=== PATIENT | male | born 1970 | race Caucasian/White ===

== ENCOUNTER 2017-05-25 13:56 | Emergency (ER) | payer MEDICARE ==
[2017-05-25 16:54] LABS: BASOPHILS 0.5 % (0-2); HEMATOCRIT 39.1 % (42.0-54.0); HEMOGLOBIN 12.5 g/dL (13.5-17.5); IMMATURE GRANULOCYTES 0.1 % (0-5); LYMPHOCYTES 18.1 % (15-50); MCH 28.2 pg (26.0-34.0); MCV 88.1 fL (80.0-100.0); MONOCYTES 5.2 % (2-11); NEUTROPHILS 71.1 % (40-80); PLATELET COUNT 270 10x3/uL (130-400); RBC 4.44 10x6/uL (4.20-6.10); RDW 15.7 % (11.5-14.5); WBC 8.1 10x3/uL (4.8-10.8)
[2017-05-25 17:07] LABS: ALBUMIN 3.9 g/dL (3.4-5.0); ALKALINE PHOSPHATASE 60 U/L (46-116); ALT (SGPT) 15 U/L (10-68); CALC OSMOLALITY 300 mosm/kg (275-300); CALCIUM 8.3 mg/dL (8.5-10.1); CARBON DIOXIDE 24.5 mmol/L (21.0-32.0); CHLORIDE - SERUM 103 mmol/L (98-107); GLUCOSE 128 mg/dL (74-106); POTASSIUM - SERUM 5.9 mmol/L (3.5-5.1); PROTEIN - SERUM 7.6 g/dL (6.4-8.2); SODIUM 139 mmol/L (136-145); UREA NITROGEN 70 mg/dL (7-18); eGFR NON AFRICAN AMERICAN 5 mL/min (90-120)
[2017-05-25 17:10] LABS: CREATINE KINASE 131 UL (21-232); TROPONIN-I < 0.017 ng/mL (0.000-0.060)
[2017-05-29] MEDS ORDERED: LISINOPRIL5 MG PO (20:27)
[2017-05-29] MEDS ORDERED: LIPITOR20 MG PO (20:27)
[2017-05-29] MEDS ORDERED: BAYER CHEWABLE81 MG PO (20:28)
== END 2017-05-25 21:29 | disposition home or self-care (01) ==
LOC: D.ER 13:56 → D.SDCHOLD 19:15 → D.ER 21:29 → D.SDCHOLD 21:29
PROVIDERS: Family Medicine
DX: I12.9 Hypertensive chronic kidney disease with stage 1 through stage 4 chronic kidney disease, or unspecified chronic kidney disease (principal); N18.9 Chronic kidney disease, unspecified; E87.5 Hyperkalemia; Z99.2 Dependence on renal dialysis; I49.3 Ventricular premature depolarization

== ENCOUNTER 2017-07-21 07:09 | Day surgery (SDC) | payer MEDICARE ==
[~2017-07-21] VITALS: Ht 185.4 cm; Wt 95.3 kg
--- NOTE | ~2017-07-21 | OP ---
PATIENT NAME: WALKER ENRIQUEZ MEDICAL RECORD: [id number] :74 LOCATION:[facility] ADMISSION DATE: SURGEON: CORA BUENROSTRO MD DATE OF OPERATION: 07/21/2017 REFERRED BY: Heidi De León MD PREOPERATIVE DIAGNOSES: End-stage renal disease and dependence on hemodialysis. OPERATION PERFORMED: Creation of a left upper extremity brachiobasilic Wilson type AV fistula as a first of 2 planned operations in construction of a brachial artery to translocated basilic vein AV fistula. SURGEON: Cora Buenrostro MD ANESTHESIA: General and regional block per CORPORATE HUMAN RESOURCES MANAGER. PREOPERATIVE NOTE: Mr. Grace is a 46-year-old white male patient who has had a prior failed fistula attempt on the left arm. He is presently on dialysis with a catheter and needs long-term access. He is brought to the OR at this time to create a fistula or if necessary implant a graft in the left arm. The patient does have a history of IV drug use. DESCRIPTION OF PROCEDURE: Under anesthesia in supine position, the patient was prepped and draped in sterile manner. I used a Michelle drain as a topical venous tourniquet and applied nitroglycerin paste to the arm and forearm. He was examined with Duplex ultrasound and color flow technique and found to have a large and very suitable basilic vein in the left arm for creation of a brachial artery to basilic fistula. The basilic vein in the forearm was also quite large and still could possibly even in the future provide for forearm access, although I think the upper arm brachiobasilic will be a much better bet for this gentleman. I made an incision on the medial aspect of the arm right over the basilic vein and exposed it and dissected it distalward as far as the antecubital space. Multiple tributaries were ligated and clipped and the vein was treated with topical papaverine. The brachial artery was exposed, point which was very close proximity to the vein. The artery was controlled and encircled with doubly looped Silastic tapes, which were used to occlude the vessel. The vessel was opened and flushed proximally and distally with heparinized saline and generally prepared for anastomosis. The basilic vein distally was ligated and then transected and bevelled. It was flushed with heparinized saline and then anastomosed end of vein to side of artery with running 6-0 Prolene. When completed and the occluding loops were released, excellent flow developed immediately in the fistula. There was preservation of a high resistance type pulsatile flow in the distal brachial artery and did have normal high resistance type pulsatile flow in the radial artery at the wrist. Hemostasis was adequate. The wound was irrigated with Ancef/gentamicin solution and closed without the use of a drain using interrupted inverted 3-0 Vicryl and then running intracuticular 4-0 Monocryl and Dermabond glue. The incisions were dressed with Maxorb Ag, Tegaderm and Cavilon skin prep and the patient was awakened from his anesthetic and taken to the recovery room in stable condition. Blood loss was trivial and unreplaced. All sponges, instruments and needles were accounted for. No drain was used and no surgical specimen was submitted for histopathology. PLAN: I will give the patient a prescription for Fisher 5/325, #15, he can take OPERATIVE REPORT [id number] WALKER ENRIQUEZ 1 or 2 p.o. q.4 hours p.r.n. pain. He is to see me in my office next week and we will plan after that for a day to return him to the operating room for the next stage, which will be translocation. TRANSINT:[id number] Voice Confirmation ID: [id number] DOCUMENT ID: [id number] CORA BUENROSTRO MD at 2011 CC: HEIDI DE LEÓN MD [id number] DICTATION DATE: 07/21/17 1601 ADMINISTRATIVE NURSING SUPERVISOR: 07/21/17 1628 [facility] 07/21/17 [place] [address] [place] [id number]
[~2017-07-21 07:09] MED LIST: BAYER CHEWABLE81 MG PO; LIPITOR20 MG PO; PRINIVIL20 MG PO
[2017-07-21 07:55] LABS: BASOPHILS 0.5 % (0-2); EOSINOPHILS 5.6 % (0-7); HEMATOCRIT 39.8 % (42.0-54.0); HEMOGLOBIN 13.6 g/dL (13.5-17.5); IMMATURE GRANULOCYTES 0.1 % (0-5); LYMPHOCYTES 19.7 % (15-50); MCH 28.9 pg (26.0-34.0); MCHC 34.2 g/dL (31.0-37.0); MCV 84.5 fL (80.0-100.0); MEAN PLATELET VOLUME 10.2 fL (7.4-10.4); MONOCYTES 7.5 % (2-11); NEUTROPHILS 66.6 % (40-80); PLATELET COUNT 208 10x3/uL (130-400); RBC 4.71 10x6/uL (4.20-6.10); WBC 8.8 10x3/uL (4.8-10.8)
[2017-07-21 08:24] LABS: INR 0.99 (0.85-1.17); PROTIME 12.7 SECONDS (11.6-15.0)
[2017-07-21 08:29] LABS: ANION GAP 16.4 mmol/L (8-16); CALCIUM 7.8 mg/dL (8.5-10.1); CARBON DIOXIDE 27.2 mmol/L (21.0-32.0); CREATININE - SERUM 8.6 mg/dL (0.6-1.3); POTASSIUM - SERUM 4.6 mmol/L (3.5-5.1)
[2017-07-21] MEDS ORDERED: FUROSEMIDE20 MG PO (08:42)
[2017-07-21] MEDS ORDERED: PEPCID20 MG PO (08:42)
[2017-07-21] MEDS ORDERED: RENVELA800 MG PO (08:43)
[2017-07-21 09:12] VITALS: Ht 185.4 cm; Wt 95.3 kg
[2017-07-21] MEDS ORDERED: HYDROCODON-ACE1 EAC7 PO (16:30)
== END 2017-07-21 17:25 | disposition home or self-care (01) ==
LOC: D.OPS 07:09
PROVIDERS: Surgery
DX: E11.22 Type 2 diabetes mellitus with diabetic chronic kidney disease (principal); I12.0 Hypertensive chronic kidney disease with stage 5 chronic kidney disease or end stage renal disease; N18.6 End stage renal disease; Z99.2 Dependence on renal dialysis; F17.200 Nicotine dependence, unspecified, uncomplicated; I25.10 Atherosclerotic heart disease of native coronary artery without angina pectoris; K21.9 Gastro-esophageal reflux disease without esophagitis; B19.20 Unspecified viral hepatitis C without hepatic coma; Z01.812 Encounter for preprocedural laboratory examination

== ENCOUNTER 2017-08-25 06:47 | Day surgery (SDC) | payer MEDICARE ==
[~2017-08-25] VITALS: Ht 185.4 cm; Wt 93.9 kg
--- NOTE | ~2017-08-25 | OP ---
PATIENT NAME: WALKER MAKI MEDICAL RECORD: [id number] :74 LOCATION:[facility] ADMISSION DATE: SURGEON: CORA BUENROSTRO MD DATE OF OPERATION: 08/25/2017 REFERRING PHYSICIAN: Heidi De León MD PREOPERATIVE DIAGNOSIS: End-stage renal disease. POSTOPERATIVE DIAGNOSIS: End-stage renal disease. OPERATION PERFORMED: Planned second stage creation of left brachial to translocated basilic vein arteriovenous fistula. SURGEON: Cora Buenrostro MD ANESTHESIA: Regional nerve block plus general with LMA per THORACIC MEDICINE SPECIALIST. PREOPERATIVE NOTE: Mr. Maki is a 46-year-old white male patient, on chronic hemodialysis with a right internal jugular tunneled dialysis catheter. He needs long-term access. He had surgery about 2-3 weeks ago when I created a Wilson type AV fistula between the brachial artery and basilic vein in the left arm. He is returned to the operating room as we had planned and discussed at length preoperatively to now convert him to a brachial artery to translocated basilic vein AV fistula. DESCRIPTION OF PROCEDURE: Under anesthesia including nerve block, the patient was placed in supine position and the left arm and shoulder and axilla were all prepped and draped in sterile manner. I used ultrasound to examine the basilic vein at the anastomosis and above it to the axilla. It is dilated very nicely, it is greater than a centimeter in diameter all the way, beginning to show some wall thickening and in short, I believe will make an excellent fistula. I made an incision on the medial aspect of the arm directly over the vein and extended it from axilla to antecubital space, reopening the old incision. I completely mobilized the basilic vein and divided tributaries between Vicryl ligatures and Hemoclips. I then created a tunnel with a combination Impra and Luciana tunneling system. I clamped the vein just proximal to the arterial anastomosis and at that point, I transected and beveled it and flushed both sides with heparinized saline. I used an atraumatic bulldog vascular clamp in the axilla on the basilic vein. I marked a line on the anterior aspect of the vein with surgical marker and used this to orient the vein and prevent twisting. The vein was pulled through the subcutaneous tunnel where it was then properly oriented and anastomosed end-to-end to the stump of the vein remaining on the arterial anastomosis. This end-to-end anastomosis was done with two 7-0 Prolenes. When completed, the anastomosis proved to be hemostatic and was not narrowed by pursestring. Excellent flow developed immediately within the fistula and good Doppler signals were detected with the handheld device. The patient was given 20 mcg of DDAVP at the conclusion of the operation to help achieve overall wound hemostasis. The wound was irrigated with Ancef and gentamicin solution. It was then closed with interrupted inverted 3-0 Vicryl. No drain was used. The skin was closed with running intracuticular 4-0 Monocryl. Dermabond glue was used to seal the ends of the skin incision and the wound was dressed with Maxorb Ag, Tegaderm and Cavilon skin prep. He was then awakened and in stable condition taken to the recovery room. Blood loss during OPERATIVE REPORT [id number] WALKER MAKI the operation was about 50 cc, none was replaced. All sponges, instruments and needles were accounted for. I submitted no surgical specimens for histopathology. PLAN: The patient needs to stay in overnight observation since he does not have transportation. He has to be able to drive himself home tomorrow. He may need to have dialysis here in [place] before he does that, however. We will ask home health to see him and do wound dressing changes on nondialysis days. The wounds needs to be washed with some Hibiclens and dressed with dry sterile gauze. We will make an appointment for him to come back to see me in my office here in [place] in about 2 weeks. TRANSINT:[id number] Voice Confirmation ID: [id number] DOCUMENT ID: [id number] CORA BUENROSTRO MD at 1241 CC: HEIDI DE LEÓN MD [id number] DICTATION DATE: 08/25/17 1437 SCRIBING MACHINE OPERATOR: 08/25/[address] [facility] 08/26/17 [facility] [address] [place] [id number]
[~2017-08-25 06:47] MED LIST changes: +FUROSEMIDE20 MG PO; +HYDROCODON-ACE1 EAC7 PO; +PEPCID20 MG PO; +RENVELA800 MG PO
[2017-08-25 07:58] LABS: BASOPHILS 0.3 % (0-2); EOSINOPHILS 5.7 % (0-7); HEMATOCRIT 26.8 % (42.0-54.0); HEMOGLOBIN 8.7 g/dL (13.5-17.5); LYMPHOCYTES 13.4 % (15-50); MCH 29.3 pg (26.0-34.0); MCHC 32.5 g/dL (31.0-37.0); MCV 90.2 fL (80.0-100.0); MONOCYTES 7.1 % (2-11); NEUTROPHILS 73.5 % (40-80); PLATELET COUNT 216 10x3/uL (130-400); RBC 2.97 10x6/uL (4.20-6.10); RDW 16.3 % (11.5-14.5); WBC 6.5 10x3/uL (4.8-10.8)
[2017-08-25 08:07] LABS: ANION GAP 12.5 mmol/L (8-16); CALCIUM 7.8 mg/dL (8.5-10.1); CREATININE - SERUM 7.8 mg/dL (0.6-1.3); POTASSIUM - SERUM 4.5 mmol/L (3.5-5.1)
[2017-08-25 08:16] LABS: INR 1.1 (0.85-1.17); PROTIME 13.8 SECONDS (11.6-15.0)
[2017-08-25 08:42] VITALS: BMI 27.5
[2017-08-25 21:27] VITALS: BP 121/73
[2017-08-25 22:54] VITALS: Ht 185.4 cm; Wt 93.9 kg
[2017-08-26 01:02] VITALS: BP 120/66
[2017-08-26 05:37] VITALS: BP 129/78
== END 2017-08-26 08:30 | disposition left against medical advice (07) ==
LOC: D.OPS 06:47 → D.M2 19:29 → D.OPS 08-26 08:30
PROVIDERS: Internal Medicine Nephrology
DX: I12.0 Hypertensive chronic kidney disease with stage 5 chronic kidney disease or end stage renal disease (principal); N18.6 End stage renal disease; Z99.2 Dependence on renal dialysis; F17.200 Nicotine dependence, unspecified, uncomplicated; B19.20 Unspecified viral hepatitis C without hepatic coma; I25.10 Atherosclerotic heart disease of native coronary artery without angina pectoris; Z01.812 Encounter for preprocedural laboratory examination

== ENCOUNTER 2019-01-13 05:11 | Inpatient (IN) | payer MEDICARE ==
[~2019-01-13] VITALS: Ht 185.4 cm; Wt 81.6 kg
[2019-01-13] MEDS ORDERED: ENTRESTO 24 MG1 EACH PO (05:15)
--- NOTE | 2019-01-13 05:58 | NUR ---
DR MONTENEGRO NOTIFIED AND REVIEWED PT'S BEHAVIOR AND ASSESSMENT RESULTS PT IS A LOW RISK PER DR MONTENEGRO. DR MONTENEGRO STATED TO GIVE RESOURCES TO PT AT TIME OF DISCHARGE. NO FURTHER ORDERS AT THIS TIME. RESOURCES REVIEWED WITH PT AND HE VERBALIZED UNDERSTANDING.
[2019-01-13 06:03] LABS: BASOPHILS 0.4 % (0-2); EOSINOPHILS 7.9 % (0-7); HEMATOCRIT 34.7 % (42.0-54.0); HEMOGLOBIN 11.7 g/dL (13.5-17.5); IMMATURE GRANULOCYTES 0.1 % (0-5); LYMPHOCYTES 14.2 % (15-50); MCH 30.5 pg (26.0-34.0); MCHC 33.7 g/dL (31.0-37.0); MCV 90.4 fL (80.0-100.0); MEAN PLATELET VOLUME 11.2 fL (7.4-10.4); MONOCYTES 8.2 % (2-11); NEUTROPHILS 69.2 % (40-80); PLATELET COUNT 189 10x3/uL (130-400); RBC 3.84 10x6/uL (4.20-6.10); RDW 14.7 % (11.5-14.5); WBC 6.7 10x3/uL (4.8-10.8)
--- NOTE | 2019-01-13 07:08 | NUR ---
BEDSIDE REPORT GIVEN TO GALDINO GARCIA.
--- NOTE | 2019-01-13 07:08 | NUR ---
REPORT RECIEVED FROM OFF GOING NURSE, GALDINO PICKENS. PT OBSERVED LYING IN BED, ALERT AND ORIENTED. RESPIRATIONS EVEN AND UNLABORED. NO SIGNS OF DISTRESS. CALL LIGHT IN REACH. PT AWARE HE IS BEING ADMITTED TO [facility]. DR. JONES AT THE BEDSIDE TO SEE PT AT THIS TIME.
[2019-01-13 07:14] LABS: ALBUMIN 3.2 g/dL (3.4-5.0); BILIRUBIN - TOTAL 0.92 mg/dL (0.2-1.3); CALCIUM 8.1 mg/dL (8.5-10.1); CARBON DIOXIDE 20.4 mmol/L (21.0-32.0); CREATININE - SERUM 12.4 mg/dL (0.6-1.3); PROTEIN - SERUM 6.8 g/dL (6.4-8.2)
[2019-01-13 07:16] LABS: POTASSIUM - SERUM 6.4 mmol/L (3.5-5.1)
--- NOTE | 2019-01-13 07:20 | NUR ---
DR SCHROEDER PAGED AT 0719 TO REPORT CRITICAL POTASSIUM.
[2019-01-13 07:47] LABS: APTT 30.6 SECONDS (22.8-39.4); INR 1.22 (0.85-1.17); PROTIME 14.9 SECONDS (11.6-15.0)
[2019-01-13 08:00] VITALS: BP 129/78
[2019-01-13 08:22] LABS: CREATINE KINASE 384 UL (21-232); MAGNESIUM - SERUM 2.6 mg/dL (1.8-2.4); TROPONIN-I 0.045 ng/mL (0.000-0.060)
[2019-01-13 08:25] LABS: PHOSPHOROUS 11.5 mg/dL (2.5-4.9)
[2019-01-13 08:26] LABS: CKMB 7.5 U/L (0.0-3.6)
--- NOTE | 2019-01-13 08:26 | NUR ---
NOTIFIED BY LAB OF CRITICAL PHOSPHORUS OF 11.5. ADMITTING PHYSICIAN NOTIFIED.
[2019-01-13 09:00] VITALS: BP 131/83
--- NOTE | 2019-01-13 09:17 | NUR ---
ORDERED PO RENAGEL AND PO EMTRESTO NOT GIVEN D/T INSRTUCTIONS REGARDING ADMINISTERED MEDICATION KAYEXELATE. INSTRUCTIONS STATE THAT PO MEDS MUST NOT BE GIVEN WITHIN 3 HOURS OF PO KAYEXELATE.
--- NOTE | 2019-01-13 09:35 | NUR ---
PT REMAINS ALERT AND ORIENTED WHEN AWAKE, DENIES ANY NEEDS. PT AWARE HE IS BEING ADMITTED AND HAVING DIALYSIS TODAY. AWAITING BED ASSIGNMENT. CALL LIGHT IN REACH, WILL CONTINUE TO MONITOR.
--- NOTE | 2019-01-13 11:06 | NUR ---
PT LEFT THE ED AT 1036. TRANSPORTED TO INPATIENT DIALYSIS VIA STRETCHER BY THIS NURSE. NO SIGNS OF DISTRESS. NOTED WHEN LEAVING.
--- NOTE | 2019-01-13 14:58 | NUR ---
PT BACK TO THE ED AT THIS TIME, RETURNED FROM DIALYSIS UNIT. NO SIGNS OF DISTRESS. PT ALERT AND ORIENTED, RESPIRATIONS EVEN AND UNLABORED. PT STATES HE "FEELS MUCH BETTER" FOLLOWING DIALYSIS. PT STATES HE NO LONGER FEELS SOB.
--- NOTE | 2019-01-13 14:59 | NUR ---
ROOM 2130 ASSIGNED TO PT AT 1324, MARKED DIRTY. AT 1415 THIS NURSE CALLED AND SPOKE WITH FAMILY PRACTICE PHYSICIAN ASSISTANT WHO STATES ROOM 2130 NOT READY AT THIS TIME. THIS NURSE REQUESTED THAT ED BE NOTIFIED WHEN ASSIGNED ROOM IS CLEAN AND READY FOR PT.
--- NOTE | 2019-01-13 15:49 | NUR ---
JOSE RN REPORTS INTERVENTIONAL RADIOLOGY STAFF QUESTIONING ORDER FOR PARACENTESIS. THIS RN CONTACTS DR. SMITH FOR CLARIFICATION OF ORDER. DR. SMITH ORDERS AN ULTRASOUND OF ABDOMEN TODAY ET OKAY TO DO PARACENTESIS TOMORROW. IR STAFF NOTIFIED AND ACCURATE UNDERSTANDING EXPRESSED.
--- NOTE | 2019-01-13 16:15 | NUR ---
NOTIFIED THAT PT'S ASSIGNED ROOM READY AT 1600.
--- NOTE | 2019-01-13 16:18 | NUR ---
CM delivered the IMM to patient, signed per patient @4285. Name: Sanjay Maki. renetta James RN
--- NOTE | 2019-01-13 16:29 | NUR ---
PER ER NURSES, PT HAS BEEN EATING WHILE IN ER / PT NOW ADMITTED TO FLOOR IN 2129 / U/S WILL BE DONE IN AM / NURSING STAFF ADVISED TO HOLD NPO AFTERF MIDNIGHT / RENEE WAS STAFF. GC, RDMS 7003
--- NOTE | 2019-01-13 17:23 | NUR ---
RECEIVED PT FROM ER. PT IS AAO AND UP AD AWILDA. RR EVEN AND UNLABORED ON RA. NO S/S OF DISTRESS NOTED. PT IS AAO AND UP AD AWILDA. R.HAND PIV IS SALINE LOCKED. PT DENIES ANY NEEDS AT THIS TIME. WILL CTM.
[2019-01-13 17:27] VITALS: BMI 23.8
--- NOTE | 2019-01-13 17:35 | NUR ---
ASSESSMENT COMPLETE PT AAOX4 RESP UNLABORED DENIES ANY NEEDS OR PAIN AT THIS TIME SALINE LOCK INTACT TO RT HAND SITE FREE OF REDNESS OR EDEMA
--- NOTE | 2019-01-13 19:30 | NUR ---
REPORT RECEIVED, WILL CONTINUE POC. PATIENT IS A/OX4, UP AD AWILDA. PATIENT IS RESTING ON RT SIDE WITH EYES CLOSED. NO S/S OF DISTRESS NOTED, RR EVEN AND UNLABORED ON ROOM AIR. IV TO RT HAND SL, PATENT, DRSG C/D/I. CL IN REACH, BED LOCKED AND LOWERED. WILL CTM.
[2019-01-13 20:00] VITALS: BP 138/82
[2019-01-14] VITALS: BP 126/67; BP 138/82
[2019-01-14 04:00] VITALS: BP 111/73
--- NOTE | 2019-01-14 06:49 | NUR ---
I have reviewed this patient and I concur with the Shift Assessment completed by the Licensed Practical Nurse today this shift.
--- NOTE | 2019-01-14 07:15 | NUR ---
REPORT RECEIVED. WILL CONTINUE WITH POC. PT CURRENTLY LYING ON LEFT SIDE RESTING. CALL LIGHT W/I REACH. RR EVEN AND UNLABORED ON RA. R.HAND PIV IS SALINE LOCKED. PT IS NPO FOR ULTRASOUND. PT DENIES ANY NEEDS AT THIS TIME. WILL CTM.
[2019-01-14 08:03] VITALS: BP 141/87
[2019-01-14 10:26] LABS: BASOPHILS 0.6 % (0-2); EOSINOPHILS 7.6 % (0-7); HEMATOCRIT 34.7 % (42.0-54.0); HEMOGLOBIN 11.3 g/dL (13.5-17.5); IMMATURE GRANULOCYTES 0.2 % (0-5); LYMPHOCYTES 17.5 % (15-50); MCH 30.1 pg (26.0-34.0); MCHC 32.6 g/dL (31.0-37.0); MCV 92.3 fL (80.0-100.0); MEAN PLATELET VOLUME 10.4 fL (7.4-10.4); MONOCYTES 7.6 % (2-11); NEUTROPHILS 66.5 % (40-80); PLATELET COUNT 181 10x3/uL (130-400); RBC 3.76 10x6/uL (4.20-6.10); RDW 14.4 % (11.5-14.5); WBC 5.3 10x3/uL (4.8-10.8)
[2019-01-14 10:33] LABS: ANION GAP 17.8 mmol/L (8-16); CALCIUM 8.4 mg/dL (8.5-10.1); CARBON DIOXIDE 24.5 mmol/L (21.0-32.0); CREATININE - SERUM 10.7 mg/dL (0.6-1.3)
[2019-01-14 10:34] LABS: POTASSIUM - SERUM 5.3 mmol/L (3.5-5.1)
[2019-01-14 11:55] VITALS: BP 133/89
[2019-01-14 13:40] VITALS: Ht 185.4 cm; Wt 81.6 kg
--- NOTE | 2019-01-14 14:35 | MORECARE ---
CASE MANAGEMENT DISCHARGE SUMMARY PATIENT: SANJAY MAKI UNIT: [id number] ADM DATE: 01/13/19 AGE: 48 : 74 SEX: M ROOM/BED: D.2130 AUTHOR: ANGELINA PARKS PHYSICIAN: REFERRING PHYSICIAN: ELEONORA MARISCAL DO DATE OF SERVICE: 01/14/19 Discharge Plan Patient Name: SANJAY MAKI Facility: [facility]:[place] : 1970 Planned Disposition: Anticipated Discharge Date: Discharge Date: Expected LOS: Initial Reviewer: [email or web address] Initial Review Date: 01/14/2019 Generated: 01/14/19 3:35 pm Comments DCP- Discharge Planning Updated by [email or web address]: Barbara Monk on 01/14/19 1:[address] Patient Name: SANJAY MAKI Admission Status: ER Accout number: [id number] Admission Date: 01-13-2019 : 1970 Admission Diagnosis: Attending: HECTOR Current LOS: 1 Anticipated DC Date: Planned Disposition: Primary Insurance: MEDICARE A & B Discharge Planning Comments: CM MET WITH PATIENT ABOUT DC PLAN. STATES PLANS TO DC TO HOME TODAY AND HIS FRIEND IS ON THE WAY TO PICK HIM UP. [facility] WILL RESU[facility] HH WITH [facility]. CM TO FOLLOW. Plastic Card Grader Cardroom: Barbara Monk DCPIA - Discharge Planning Initial Assessment Updated by [id number]: Barbara Monk on 01/14/19 2:29 pm * Is the patient Alert and Oriented? Yes * PCP [facility] * Pharmacy [facility] IN [place] * Preadmission Environment Home with Family * ADLs Independent * Community resources currently utilized Home Health * Please name any agencies selected above. [facility] * Additional services required to return to the preadmission environment? No * Can the patient safely return to the preadmission environment? Yes * Has this patient been hospitalized within the prior 30 days at any hospital? No Coverage Notice Reviewer: [id number] Shabbir James Notice Issued Date-Time: 01/13/2019 16:05 Notice Type: IM Admission Notice Notice Delivered To: Patient Relationship to Patient: Self Construction Manager Name: Sanjay Maki Delivery Method: HAND - Hand Delivered Eloisa Days: Prior Verbal Notification: Recipient Understood Notice: Recipient Signature: Yes Med Rec Note Co-signed by Attending: Coverage Notice Comment: Patient Name: SANJAY MAKI Page [id number] at 1435 All edits/amendments must be made on the electronic document DICTATION DATE: 01/14/191434 TRAILER RENTAL CLERK: ENZO 01/14/191434 RPT#: [id number] DC DATE: STATUS: ADM IN [facility] [address] [place] [address] END OF REPORT
--- NOTE | 2019-01-14 15:56 | NUR ---
PT DISCHARGED HOME VIA WHEELCHAIR WITH FAMILY. PIV REMOVED WITH CATHETER TIP FULLY INTACT. PT SIGNED PROPER DISCHARGE INSTRUCTIONS AND REMOVED ALL VALUABLES FROM THE ROOM.
--- NOTE | 2019-01-14 17:33 | MORECARE ---
CASE MANAGEMENT DISCHARGE SUMMARY PATIENT: SANJAY MAKI UNIT: [id number] ADM DATE: 01/13/19 AGE: 48 : 74 SEX: M ROOM/BED: D.2130 AUTHOR: ANGELINA PARKS PHYSICIAN: REFERRING PHYSICIAN: ELEONORA MARISCAL DO DATE OF SERVICE: 01/14/19 Discharge Plan Patient Name: SANJAY MAKI Facility: [facility]:[place] : 1970 Planned Disposition: Anticipated Discharge Date: Discharge Date: 01/14/2019 Expected LOS: Initial Reviewer: [email or web address] Initial Review Date: 01/14/2019 Generated: 01/14/19 6:32 pm Comments DCP- Discharge Planning Updated by [id number]: Barbara Monk on 01/14/19 1:[address] Patient Name: SANJAY MAKI Admission Status: ER Accout number: [id number] Admission Date: 01-13-2019 : 1970 Admission Diagnosis: Attending: HECTOR Current LOS: 1 Anticipated DC Date: Planned Disposition: Primary Insurance: MEDICARE A & B Discharge Planning Comments: CM MET WITH PATIENT ABOUT DC PLAN. STATES PLANS TO DC TO HOME TODAY AND HIS FRIEND IS ON THE WAY TO PICK HIM UP. [facility] WILL RES[facility] HH WITH [facility]. CM TO FOLLOW. Manager Internship: Barbara Monk DCPIA - Discharge Planning Initial Assessment Updated by [email or web address]: Barbara Monk on 01/14/19 2:29 pm * Is the patient Alert and Oriented? Yes * PCP [facility] * Pharmacy [facility] IN [place] * Preadmission Environment Home with Family * ADLs Independent * Community resources currently utilized Home Health * Please name any agencies selected above. [facility] * Additional services required to return to the preadmission environment? No * Can the patient safely return to the preadmission environment? Yes * Has this patient been hospitalized within the prior 30 days at any hospital? No Coverage Notice Reviewer: [email or web address] Shabbir James Notice Issued Date-Time: 01/13/2019 16:05 Notice Type: IM Admission Notice Notice Delivered To: Patient Relationship to Patient: Self Semiconductor Wafer Inspector Name: Sanjay Maki Delivery Method: HAND - Hand Delivered Eloisa Days: Prior Verbal Notification: Recipient Understood Notice: Recipient Signature: Yes Med Rec Note Co-signed by Attending: Coverage Notice Comment: Last DP export: 01/14/19 1:35 p Patient Name: SANJAY MAKI Page [phone] at 1733 All edits/amendments must be made on the electronic document DICTATION DATE: 01/14/191731 CARTON GLUING MACHINE OPERATOR: ENZO 01/14/191731 RPT#: [id number] DC DATE:01/14/19 STATUS: DIS IN [facility] [address] [place] [address] END OF REPORT
== END 2019-01-14 15:56 | disposition home health service (06) | DRG 682 ==
LOC: D.ER 05:11 → D.M2 13:24
PROVIDERS: Emergency Medicine; Internal Medicine Nephrology; ADMIT Internal Medicine; ATTEND Internal Medicine
DX: I12.0 Hypertensive chronic kidney disease with stage 5 chronic kidney disease or end stage renal disease (principal); N18.6 End stage renal disease; Z99.2 Dependence on renal dialysis; I25.10 Atherosclerotic heart disease of native coronary artery without angina pectoris; E87.5 Hyperkalemia

== ENCOUNTER 2019-01-17 16:04 | Inpatient (IN) | payer MEDICARE ==
[~2019-01-17] VITALS: Ht 185.4 cm; Wt 107.5 kg
[~2019-01-17 16:04] MED LIST changes: +ENTRESTO 24 MG1 EACH PO
[2019-01-17 16:53] LABS: BASOPHILS 0.5 % (0-2); EOSINOPHILS 6.4 % (0-7); HEMATOCRIT 35.7 % (42.0-54.0); HEMOGLOBIN 11.6 g/dL (13.5-17.5); IMMATURE GRANULOCYTES 0.2 % (0-5); LYMPHOCYTES 17.6 % (15-50); MCHC 32.5 g/dL (31.0-37.0); MCV 92.2 fL (80.0-100.0); MEAN PLATELET VOLUME 10.2 fL (7.4-10.4); MONOCYTES 7.4 % (2-11); NEUTROPHILS 67.9 % (40-80); PLATELET COUNT 208 10x3/uL (130-400); RBC 3.87 10x6/uL (4.20-6.10); RDW 14.5 % (11.5-14.5); WBC 5.8 10x3/uL (4.8-10.8)
[2019-01-17 17:09] LABS: ALBUMIN 3.3 g/dL (3.4-5.0); ALKALINE PHOSPHATASE 176 U/L (46-116); ALT (SGPT) 25 U/L (10-68); BILIRUBIN - TOTAL 0.83 mg/dL (0.2-1.3); CALC OSMOLALITY 314 mosm/kg (275-300); CALCIUM 8.1 mg/dL (8.5-10.1); CARBON DIOXIDE 21.9 mmol/L (21.0-32.0); CHLORIDE - SERUM 104 mmol/L (98-107); CREATININE - SERUM 13.8 mg/dL (0.6-1.3); GLUCOSE 94 mg/dL (74-106); SODIUM 140 mmol/L (136-145); UREA NITROGEN 112 mg/dL (7-18); eGFR NON AFRICAN AMERICAN 4 mL/min (90-120)
[2019-01-17 17:11] LABS: APPEARANCE CLEAR (CLEAR); BILIRUBIN NEGATIVE (NEGATIVE); COLOR YELLOW (YELLOW); GLUCOSE 50 mg/dL (NEGATIVE); KETONE NEGATIVE (NEGATIVE); NITRITE NEGATIVE (NEGATIVE); PROTEIN 1+ mg/dL (NEGATIVE); SPECIFIC GRAVITY 1.015 (1.005-1.020); UROBILINOGEN NORMAL (NORMAL)
[2019-01-17 17:12] LABS: BACTERIA FEW /hpf (NEGATIVE); RED CELLS - URINE 0-5 /hpf (0-5); WHITE CELLS - URINE OCC /hpf (NEGATIVE)
[2019-01-17 17:13] LABS: SPERMATOZOA 0-5 /hpf (NONE SEEN)
[2019-01-17 17:20] LABS: CKMB 10.9 U/L (0.0-3.6); CREATINE KINASE 504 UL (21-232); LIPASE 83 U/L (73-393); MAGNESIUM - SERUM 2.7 mg/dL (1.8-2.4); TROPONIN-I 0.042 ng/mL (0.000-0.060)
[2019-01-17 17:25] LABS: PRO BNP 78962 pg/mL (0-125)
[2019-01-17 18:26] VITALS: BP 105/65
--- NOTE | 2019-01-17 19:02 | NUR ---
REPORT TO GALDINO AYALA AND GALDINO RIVAS IN ER. PT TO ROOM 2209
--- NOTE | 2019-01-17 19:19 | MORECARE ---
CASE MANAGEMENT DISCHARGE SUMMARY PATIENT: WALKER MAKI UNIT: [id number] ADM DATE: 01/17/19 AGE: 48 : 74 SEX: M ROOM/BED: D.2136 AUTHOR: ANGELINA PARKS PHYSICIAN: REFERRING PHYSICIAN: SANJAY SUN MD DATE OF SERVICE: 01/17/19 Discharge Plan Patient Name: WALKER MAKI [facility] [facility] 1970 Planned Disposition: Home Anticipated Discharge Date: 01/20/19 Discharge Date: Expected LOS: 3 Initial Reviewer: [email or web address] Initial Review Date: 01/17/2019 Generated: 01/17/19 8:18 pm DCPIA - Discharge Planning Initial Assessment Updated by [email or web address]: Araceli Catalan on 01/17/19 7:16 pm * Is the patient Alert and Oriented? Yes * PCP Dr. Maureen [place] * Pharmacy [facility] - [place] * Preadmission Environment Home with Family * ADLs Independent * List name and contact numbers for known caregivers / representatives who currently or will assist patient after discharge: Leighann Maki - [facility] - [phone] * Verbal permission to speak to the caregivers and representatives has been obtained from the patient. Yes * Community resources currently utilized Home Health * Please name any agencies selected above. [facility] * Additional services required to return to the preadmission environment? No * Can the patient safely return to the preadmission environment? Yes * Has this patient been hospitalized within the prior 30 days at any hospital? Yes Patient Name: WALKER MAKI Page [phone] at 1919 All edits/amendments must be made on the electronic document DICTATION DATE: 01/17/191917 PREFITTER DOORS: ENZO 01/17/191917 RPT#: [id number] DC DATE: STATUS: ADM IN [facility] [address] [place] [address] END OF REPORT
--- NOTE | 2019-01-17 19:26 | MORECARE ---
CASE MANAGEMENT DISCHARGE SUMMARY PATIENT: WALKER MAKI UNIT: [id number] ADM DATE: 01/17/19 AGE: 48 : 74 SEX: M ROOM/BED: D.2136 AUTHOR: ANGELINA PARKS PHYSICIAN: REFERRING PHYSICIAN: SANJAY SUN MD DATE OF SERVICE: 01/17/19 Discharge Plan Patient Name: WALKER MAKI Facility: [facility]:[place] : 1970 Planned Disposition: Home Anticipated Discharge Date: 01/20/19 Discharge Date: Expected LOS: 3 Initial Reviewer: [email or web address] Initial Review Date: 01/17/2019 Generated: 01/17/19 8:25 pm DCP- Discharge Planning Updated by [email or web address]: Araceli Catalan on 01/17/19 6:[address] DC PLAN: Home with . HD M-W-F ([place]), [facility] ([place]) ANTICIPATED DC NEEDS: Resumption of Home Health & Possible transportation issues. CM met with patient to complete initial dc planning assessment. CM educated patient on the CM role and verbal consent given by patient to complete assessment. CM verified patient's address, phone number, and emergency contact phone numbers. Patient lives at home with his . Patient currently has [facility] out to [facility] and wishes to resume at discharge. DANN form signed by patient for resumption of [facility]. Signed form placed in chart and signed form given to patient. Patient is also on dialysis M-W-F in [place]. At discharge patient plans to return home and feels this is a safe discharge. Patient stated he is having car problems and he is not sure how he is going to get home. CM will continue to follow and will assist as needed with dc plans/needs. Araceli Catalan RN, [facility] DCPIA - Discharge Planning Initial Assessment Updated by [email or web address]: Araceli Catalan on 01/17/19 7:16 pm * Is the patient Alert and Oriented? Yes * PCP Dr. Maureen Martinez - [place] * Pharmacy [facility] - [place] * Preadmission Environment Home with Family * ADLs Independent * List name and contact numbers for known caregivers / representatives who currently or will assist patient after discharge: Leighann Maki - spouse - [phone] * Verbal permission to speak to the caregivers and representatives has been obtained from the patient. Yes * Community resources currently utilized Home Health * Please name any agencies selected above. [facility] * Additional services required to return to the preadmission environment? No * Can the patient safely return to the preadmission environment? Yes * Has this patient been hospitalized within the prior 30 days at any hospital? Yes Last DP export: 01/17/19 6:19 p Patient Name: WALKER MAKI Page [id number] at 1926 All edits/amendments must be made on the electronic document DICTATION DATE: 01/17/191924 LIBRARY CIRCULATION DEPARTMENT CHIEF: ENZO 01/17/191924 RPT#: [id number] DC DATE: STATUS: ADM IN [facility] [address] [place] [address] END OF REPORT
[2019-01-17 20:00] VITALS: BP 166/53
--- NOTE | 2019-01-18 00:28 | NUR ---
RECIEVEDD REPORT FROM ER. [facility] ALERT AND ORIENTED X4. UP AD AWILDA TO B/R. PT CAME WITH CUP OF COFFEE AND REQUESTED A SANDWICH. SANDWICH BOX GIVE AND THEN NOTICED HE WAS NPO. EXPLAINED TO PT AND HE SAID NO ONE TOLD ME. HAD ALREADY HAD EATEN THE SANDWICH AND DRANK COFFEE. PT IN DIALYSIS AT THIS TIME.
--- NOTE | 2019-01-18 00:47 | NUR ---
BACK FROM DIALYSIS AT THIS TIME. REPORTED 4 LITERS REMOVED. ALERT AND ORIENTED STATES " I FEEL SO GOOD". DENIES ANY NEEDS AT THIS TIME.
[2019-01-18 01:20] VITALS: BP 166/58; BMI 31.3
[2019-01-18 04:34] VITALS: BP 146/56
--- NOTE | 2019-01-18 07:30 | NUR ---
REPORT RECIEVED. PT SITTING UP IN BED. MADE SURE PT WAS AWARE OF HIS NPO STATUS. PT UNDERSTANDS. HE HAS A R FA PIV THAT IS SL. RR EVEN AND UNLABORED. NO DISTRESS NOTED. HE HAS A HEMOSPLIT AND A FISTULA IN THE L ARM, MAKING HIM A L ARM RESERVE. BED LOCKED AND IN LOWEST POSITION, CALL LIGHT WITHIN REACH. WILL CTM
[2019-01-18 08:00] VITALS: BP 118/82
[2019-01-18 12:00] VITALS: BP 135/80
[2019-01-18 12:26] LABS: CALCIUM 8.4 mg/dL (8.5-10.1); CARBON DIOXIDE 24.3 mmol/L (21.0-32.0); CREATININE - SERUM 10.5 mg/dL (0.6-1.3)
[2019-01-18 12:27] LABS: POTASSIUM - SERUM 4.3 mmol/L (3.5-5.1)
--- NOTE | 2019-01-18 14:08 | NUR ---
I have reviewed this patient and I concur with the Shift Assessment completed by the Licensed Practical Nurse today this shift.
[2019-01-18 14:44] VITALS: Ht 185.4 cm; Wt 107.5 kg
[2019-01-18 16:07] VITALS: BP 127/65
--- NOTE | 2019-01-18 19:22 | NUR ---
RECIEVED UP IN ROOM AMBULATING AROUND BED. REQUESTING MORE FOOD. SANDWICH TRAY GIVEN. ALERT AND ORIENTED X4. HEMOSPLIT TO LEFT CHEST AND IV TO RIGHT FA SL.. ABDOMEN DISTENDED. BSX4Q. DENIES ANY OTHER NEEDS AT THIS TIME.
[2019-01-18 20:22] VITALS: BP 149/55
[2019-01-19] VITALS: BP 150/56
[2019-01-19 05:24] VITALS: BP 156/54
--- NOTE | 2019-01-19 07:30 | NUR ---
A/A/OX4. UP AND ABOUT IN ROOM AND HALLWAYS AD AWILDA. DENIES ANY PAIN OR DISCOMFORT AND NO REQUESTS VOICED. IS TO HAVE DIALYSIS TODAY AND INFORMED PT IT WOULD BE SOMETIME AROUND NOON PER DIALYSIS NURSE. STATES HE IS JUST ANXIOUS TO BE DISCHARGED AND GET HOME. ASSESSMENT COMPLETED AND WILL CONTINUE POC. NO APPARENT NEW PROBLEMS.
[2019-01-19 08:20] VITALS: BP 178/43
[2019-01-19 12:12] VITALS: BP 162/66
--- NOTE | 2019-01-19 13:00 | NUR ---
I have reviewed this patient and I concur with the Shift Assessment completed by the Licensed Practical Nurse today this shift.
[2019-01-19 16:15] VITALS: BP 172/44
[2019-01-19 20:00] VITALS: BP 151/63
--- NOTE | 2019-01-19 20:15 | NUR ---
PT ARRIVED BACK FROM DIALYSIS VIA WHEELCHAIR. PT VITALS STABLE AT THIS TIME. ALERT AND ORIENTED X4. CONSENTS SIGNED FOR PROCEDURE IN AM. PT EATING DINNER AND WILL BE NPO AT MIDNIGHT. PT HAS NO COMPLAINTS OF PAIN OR ANY FURTHER NEEDS. WILL CONTINUE TO MONITOR.
[2019-01-20 00:35] VITALS: BP 179/61
[2019-01-20 04:00] VITALS: BP 144/54
[2019-01-20 06:29] LABS: BASOPHILS 0.3 % (0-2); EOSINOPHILS 6.5 % (0-7); HEMATOCRIT 32.7 % (42.0-54.0); HEMOGLOBIN 10.5 g/dL (13.5-17.5); LYMPHOCYTES 12.6 % (15-50); MCH 29.2 pg (26.0-34.0); MCHC 32.1 g/dL (31.0-37.0); MCV 91.1 fL (80.0-100.0); MEAN PLATELET VOLUME 11.1 fL (7.4-10.4); MONOCYTES 10.4 % (2-11); NEUTROPHILS 70.2 % (40-80); PLATELET COUNT 181 10x3/uL (130-400); RBC 3.59 10x6/uL (4.20-6.10); RDW 14.2 % (11.5-14.5); WBC 5.9 10x3/uL (4.8-10.8)
[2019-01-20 06:58] LABS: APTT 34.8 SECONDS (22.8-39.4); INR 1.28 (0.85-1.17); PROTIME 15.5 SECONDS (11.6-15.0)
[2019-01-20 06:59] LABS: CALCIUM 7.6 mg/dL (8.5-10.1); CARBON DIOXIDE 24.1 mmol/L (21.0-32.0); CREATININE - SERUM 8.9 mg/dL (0.6-1.3); PHOSPHOROUS 7.9 mg/dL (2.5-4.9); POTASSIUM - SERUM 4.1 mmol/L (3.5-5.1)
[2019-01-20 09:22] VITALS: BP 160/37
--- NOTE | 2019-01-20 10:18 | NUR ---
PT REPORTS THAT HE IS A SMOKER. PAGED AND NEW ORDER RECIEVED TO START A NICOTINE PATCH.
--- NOTE | 2019-01-20 10:43 | NUR ---
PATIENT JUST RETURNED FROM [facility]. THEY REMOVED 3000 ML AND PLACED AN IV IN HIS RIGHT AC. HE IS ALERT AND ORIENTED AND SITTING UP IN BED AT THIS TIME.
[2019-01-20 11:21] VITALS: BP 160/37
[2019-01-20 12:06] VITALS: BP 154/55
[2019-01-20 13:03] VITALS: BP 153/54
--- NOTE | 2019-01-20 14:08 | NUR ---
BRENDA IS BRING DISCHARGED. THE IV FROM LAST NIGHT THE PATIENT PULLED OUT HIMSELF ACCEDENTLY HE SAYS THAT HE TOOK HIS SHIRT OFF AND IT CAM OUT OF HIS ARM. IT IS RED AND IRRITATED. HE IS BEING DISCHARGED AND I TOLD HIM TO KEEP A CLOSE EYE ON IT AND IF IT LOOKS LIKE IT IS GETTING WORSE TO CALL THE DR. THE IV IN HIS R FOREARM THAT IR PLACED TODAY BEFORE HIS PARACENTISIS I JUST REMOVED WITH CATHETERINTACT FROM HIS RIGHT FOREARM. HE SAID IT DIDNT HURT AT ALL. HE IS GATHERING ALL HIS BELONGINGS AND WILL GO DOWNSTAIRS IN A WHEELCHAIR WITH HIS FAMILY. ALL DISCHARGE TEACHING HAS BEEN DONE AND PAPERS SIGNED.
--- NOTE | 2019-01-20 16:17 | MORECARE ---
CASE MANAGEMENT DISCHARGE SUMMARY PATIENT: WALKER MAKI UNIT: [id number] ADM DATE: 01/17/19 AGE: 48 : 74 SEX: M ROOM/BED: D.2136 AUTHOR: ANGELINA PARKS PHYSICIAN: REFERRING PHYSICIAN: SANJAY SUN MD DATE OF SERVICE: 01/20/19 Discharge Plan Patient Name: WALKER MAKI Facility: [facility]:[place] : 1970 Planned Disposition: Home Anticipated Discharge Date: 01/20/19 Discharge Date: 01/20/2019 Expected LOS: 3 Initial Reviewer: [email or web address] Initial Review Date: 01/17/2019 Generated: 01/20/19 5:17 pm DCP- Discharge Planning Updated by [email or web address]: Araceli Catalan on 01/17/19 6:[address] DC PLAN: Home with . HD M-W-F ([place]), [facility] ([place]) ANTICIPATED DC NEEDS: Resumption of Home Health & Possible transportation issues. CM met with patient to complete initial dc planning assessment. CM educated patient on the CM role and verbal consent given by patient to complete assessment. CM verified patient's address, phone number, and emergency contact phone numbers. Patient lives at home with his . Patient currently has [facility] out to [facility], [place] and wishes to resume at discharge. DANN form signed by patient for resumption of [facility]. Signed form placed in chart and signed form given to patient. Patient is also on dialysis M-W-F in [place]. At discharge patient plans to return home and feels this is a safe discharge. Patient stated he is having car problems and he is not sure how he is going to get home. CM will continue to follow and will assist as needed with dc plans/needs. Araceli Catalan RN, CCM DCPIA - Discharge Planning Initial Assessment Updated by [email or web address]: Araceli Catalan on 01/17/19 7:16 pm * Is the patient Alert and Oriented? Yes * PCP Dr. Maureen Martinez - [place] * Pharmacy [facility] - [place] * Preadmission Environment Home with Family * ADLs Independent * List name and contact numbers for known caregivers / representatives who currently or will assist patient after discharge: Leighann Maki - spouse - [phone] * Verbal permission to speak to the caregivers and representatives has been obtained from the patient. Yes * Community resources currently utilized Home Health * Please name any agencies selected above. [facility] * Additional services required to return to the preadmission environment? No * Can the patient safely return to the preadmission environment? Yes * Has this patient been hospitalized within the prior 30 days at any hospital? Yes Coverage Notice Reviewer: [id number] Shabbir Moore Notice Issued Date-Time: 01/20/2019 14:20 Notice Type: IM Discharge Notice Notice Delivered To: Patient Relationship to Patient: Senior Interior Designer Name: Delivery Method: HAND - Hand Delivered Eloisa Days: Prior Verbal Notification: Recipient Understood Notice: Yes Recipient Signature: Yes Med Rec Note Co-signed by Attending: Coverage Notice Comment: Last DP export: 01/17/19 6:26 p Patient Name: WALKER MAKI Page [id number] at 1617 All edits/amendments must be made on the electronic document DICTATION DATE: 01/20/191616 BACTERIOLOGY PROFESSOR: ENZO 01/20/191616 RPT#: [id number] DC DATE:01/20/19 STATUS: DIS IN [facility] [address] [place] [address] END OF REPORT
== END 2019-01-20 14:43 | disposition home health service (06) | DRG 432 ==
LOC: D.ER 16:04 → D.M2 18:51
PROVIDERS: Family Medicine; Radiology Vascular & Interventional Radiology; ADMIT Internal Medicine Nephrology; ATTEND Internal Medicine Nephrology
PROC: 0W9G3ZZ Drainage of Peritoneal Cavity, Percutaneous Approach (ICD-10-PCS; principal; 2019-01-20 09:51)
DX: K74.60 Unspecified cirrhosis of liver (principal); N18.6 End stage renal disease; I12.0 Hypertensive chronic kidney disease with stage 5 chronic kidney disease or end stage renal disease; Z99.2 Dependence on renal dialysis; Z91.15 Patient's noncompliance with renal dialysis; E87.5 Hyperkalemia